=== PATIENT | female | born 1965 | race American Indian/Alaskan Native ===

== ENCOUNTER 2018-09-10 17:41 | Emergency (ER) | payer BC, OTHER ==
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
[2018-09-10] MEDS ORDERED: TORADOL IM ONE (20:21)
[2018-09-10] MEDS ORDERED: DECADRON IM ONE (20:21)
[2018-09-10 20:55] VITALS: BP 175/91
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
== END 2018-09-10 21:55 | disposition home or self-care (01) ==
LOC: ED 17:41
DX: S86.912A Strain of unspecified muscle(s) and tendon(s) at lower leg level, left leg, initial encounter (principal); S16.1XXA Strain of muscle, fascia and tendon at neck level, initial encounter; S39.012A Strain of muscle, fascia and tendon of lower back, initial encounter; M47.892 Other spondylosis, cervical region; Z98.51 Tubal ligation status; Z90.710 Acquired absence of both cervix and uterus; Z79.899 Other long term (current) drug therapy; V43.52XA Car driver injured in collision with other type car in traffic accident, initial encounter; Y93.89 Activity, other specified; Y92.488 Other paved roadways as the place of occurrence of the external cause; Y99.8 Other external cause status
CPT/HCPCS: 72040; 72100; 96372; 99283; J1100; J1885